=== PATIENT | male | born 1965 | race Caucasian/White ===

== ENCOUNTER → 2023-10-19 | Outpatient (CLI) | payer SELFPAY, OTHER ==
--- NOTE | 2023-10-19 10:30 | PET_ITS ---
EXAMINATION: FDG PET-CT INDICATIONS: A 58-year-old male with history of primary urinary bladder carcinoma presenting for restaging examination. COMPARISON EXAMINATION: None available TECHNIQUE: Following the intravenous administration of 13.34 mCi of F-18 deoxyglucose via the left antecubital fossa, multiplanar image acquisitions of the neck, chest, abdomen and pelvis to level of mid thigh, obtained at one hour post radiopharmaceutical administration contemporaneously interpreted with the current CT of the neck, chest, abdomen and pelvis, to level of mid thigh, dated 10/19/23 via coregistration reveals: BLOOD GLUCOSE LEVEL:?? 73 mg/dl?HEIGHT:?68 inches?WEIGHT: 187 lbs. FINDINGS: Head/Neck: There is no evidence of abnormal increased glucose metabolism in the pharyngeal mucosal space, parapharyngeal space, bilateral-lateral and anterior neck, hypopharynx and distribution of the laryngeal structures. The visualized portion of the cerebral cortical-subcortical structures demonstrate symmetric and preserved glucose metabolism. CHEST: There is no quantitative scintigraphic evidence of abnormal increased glucose metabolism within the context of the bilateral hemithorax pulmonary parenchyma, right and left hemithorax pleural interface, mediastinal structures and right-left thoracic perihilum. Pertinent chest CT findings are as follows. There is atherosclerotic calcification defined in the thoracic aorta without evidence of dilatation-aneurysm formation. Coronary arterial calcification is observed. There are no parenchymal densities-nodules defined in the right and left hemithorax with quantitatively significant increased FDG uptake. Abdomen/Pelvis: Normal physiologic distribution of the radiopharmaceutical is apparent in the hepatic and splenic parenchyma, both renal units, bladder and visualized intestinal tract. Diffuse radiopharmaceutical concentration is noted in all four quadrants of the abdomen and pelvis. Accentuated uptake is noted in the parenchyma of a normal-sized spleen. The abdomen and pelvis CT findings are as follows. There is atherosclerotic calcification defined in the abdominal aorta without evidence of dilatation-aneurysm formation. Abdominal-pelvic arterial calcification is observed. There is questionable evidence of cholelithiasis. Colonic diverticulosis is demonstrated without evidence of diverticulitis. Thickening of the urinary bladder wall to the left of the midline demonstrates no evidence of quantitatively significant increased FDG uptake. Right and left inguinal soft tissue densities are ametabolic. Skeletal: There is homogenous enhanced glucose concentration evidenced in the visualized appendicular and axial skeletal structures. PET/PET/CT Tumor Base -Thigh Subs IMPRESSION: 1. NEGATIVE EXAMINATION. There is no definitive quantitative scintigraphic evidence of recurrent/viable neoplasm. 2. Homogeneous increased radiopharmaceutical concentration noted in the visualized appendicular and axial skeletal structures is commensurate with the hematopoietic response to chemotherapeutic intervention. (Sugawa et al, Journal of Clinical Oncology 16:173, 1998). 3. 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 Electronic Signature Tru Rahman D.O. Accurate Quantification of SUVs for this report are calculated using the exclusive [employer], (U.S. Patent No. 10, [id number] 983 B2 [phone] [place] patent [phone] ). Standardization and correction of the FDG SUV metric exclusively available with [employer] intellectual property, allow for vendor non-specific objective quantitative sequential FDG PET-CT comparison and otherwise unobtainable optimization of the sensitivity and specificity of the examination. [email or web address] Electronically Signed: Tru Rahman DO at 8:12 EDT ,
== END | disposition home or self-care (01) ==
LOC: ONC 10:04
PROVIDERS: PCP Nurse Practitioner Family
DX: C67.2 Malignant neoplasm of lateral wall of bladder (principal); D61.810 Antineoplastic chemotherapy induced pancytopenia
CPT/HCPCS: 78815; A9552

== ENCOUNTER → 2023-12-10 | Outpatient (CLI) | payer SELFPAY, OTHER ==
--- NOTE | 2023-12-10 14:28 | CT_ITS ---
STUDY: CT ABDOMEN AND PELVIS WITH CONTRAST REASON FOR EXAM: Male, 58 years old. Evaluate bladder mass -- compare to prior RADIATION DOSAGE (If Supplied By Facility): CTDIvol = ( 13.04 ) mGy, DLP = ( 932.50 ) mGycm TECHNIQUE: Transaxial images were obtained from the dome of the diaphragm to the symphysis pubis with oral contrast. Oral and amp; IV Readi-CAT and amp; 100mL Isovue-370 was administered. Sagittal and coronal images were reconstructed. Individualized dose optimization techniques were used for this CT. COMPARISON: None. FINDINGS: Mild degree of increased linear markings at the left lung base suggestive of atelectasis. Coronary artery calcification. Normal liver. The patient is status post cholecystectomy. Normal spleen. Normal pancreas. Normal bilateral adrenal glands. Normal right kidney. Normal left kidney. Normal visualized stomach. Normal small intestine. Normal colon. The appendix is visualized and appears normal. There is scattered atherosclerotic calcification of the abdominal aorta, without a demonstrated aneurysm. Normal inferior vena cava. Normal retroperitoneum. There is a crescentic shaped soft tissue density along the anterior and left lateral wall of the urinary bladder. There is also evidence of thickening along the right lateral wall of the urinary bladder. Process should be ruled out. Normal abdominal wall. Normal osseous structures. CT/Abdomen/Pelvis WITH Contrast IMPRESSION: Bladder wall thickening as described. A neoplastic process should be ruled out. There has been essentially no change since prior study dated June 23, 1999 Electronically Signed: Tristen Aviles MD at 15:09 EDT ,
[2023-12-10 14:56] LABS: CREATININE FINGERSTICK < 1.0 mg/dL (0.70-1.30); EGFR FINGERSTICK > 60.0000 mL/min (>60)
== END | disposition home or self-care (01) ==
LOC: CT 14:28
PROVIDERS: PCP Nurse Practitioner Family; Referring Provider Student in an Organized Health Care Education/Training Program; Visit Provider Student in an Organized Health Care Education/Training Program
DX: C67.9 Malignant neoplasm of bladder, unspecified (principal)
CPT/HCPCS: 74177; Q9967

== ENCOUNTER → 2024-03-21 | Outpatient (CLI) | payer OTHER, SELFPAY ==
--- NOTE | 2024-03-21 09:00 | PET_ITS ---
EXAMINATION: FDG-PET/CT ? INDICATIONS: 58-year-old male with a history of primary urinary bladder carcinoma, presenting for restaging examination. ? COMPARISON EXAMINATION: FDG-PET CT study dated 10/19/2023. ? TECHNIQUE: Following the intravenous administration of 11.61 mCi of F-18 deoxyglucose via the left antecubital fossa, multiplanar image acquisitions of the head, neck, chest, abdomen and pelvis to the level of the midthigh, obtained at one-hour post radiopharmaceutical administration contemporaneously interpreted with the current CT of the chest, abdomen and pelvis dated 03/21/2024 and prior FDG-PET CT study dated 10/19/2023 via coregistration reveal: ? SERUM GLUCOSE LEVEL:? 67 mg/dL? HEIGHT:?? 68 inches WEIGHT:?? 173 pounds ? FINDINGS: ? HEAD/NECK:? There is no evidence of abnormal increased glucose metabolism in the pharyngeal mucosal space, parapharyngeal space, oropharynx, bilateral-lateral and anterior neck, hypopharynx and distribution of the larynx. ? The visualized portion of the cerebral cortical-subcortical structures demonstrate symmetric and preserved glucose metabolism. ? CHEST:? There is no quantitative scintigraphic evidence of abnormal increased glucose metabolism within the context of the bilateral hemithorax pulmonary parenchyma, right and left hemithorax at the pleural interface, mediastinal structures, and left-right thoracic perihilum. ? CT of the chest demonstrates the following anatomic characteristics: On review of CT of the chest, there is no definitive interval change compared to the study dated 10/19/2023. ? ABDOMEN/PELVIS:? Normal physiologic distribution of the radiopharmaceutical is identified in the hepatic and splenic parenchyma, both renal units, urinary bladder, and visualized intestinal tract. ? CT of the abdomen and pelvis is remarkable for the following: On review of CT of the abdomen/pelvis, there is no definitive interval change compared to the study dated 10/19/2023. ? SKELETAL:? There is no evidence of quantitatively significant enhanced glucose metabolism on meticulous inspection of the appendicular and axial skeletal structures. ? Degenerative changes defined in the thoracic and lumbar spine demonstrate no evidence of increased glucose metabolism. There are no sclerotic, mixed sclerotic-lytic, or primarily lytic changes defined in the axial skeletal structures with evidence of increased FDG uptake. ? PET/PET/CT Tumor Base -Thigh Subs IMPRESSION: 1. NEGATIVE EXAMINATION. There is no definitive quantitative scintigraphic evidence of recurrent-viable neoplasm. 2. Overall, compared to the prior FDG-PET CT study dated 10/19/2023, there is current and continued absence of defined viable neoplastic disease. Electronic Signature Tru Rahman D.O. Accurate Quantification of SUVs for this report are calculated using the exclusive [employer]. (U.S. Patent No. 10, 674, 983 B2 [phone] [place] patent [phone]). Standardization and correction of the FDG SUV metric via [employer] technology allow for vendor non-specific objective quantitative examination comparison and optimization of the sensitivity and specificity of the FDG PET-CT examination. [email or web address] Electronically Signed: Tru Rahman DO at 23:05 EST ,
== END | disposition home or self-care (01) ==
LOC: ONC 09:19
PROVIDERS: PCP Nurse Practitioner Family; Referring Provider Internal Medicine Hematology & Oncology; Visit Provider Internal Medicine Hematology & Oncology
DX: C67.2 Malignant neoplasm of lateral wall of bladder (principal); D61.810 Antineoplastic chemotherapy induced pancytopenia; D63.0 Anemia in neoplastic disease
CPT/HCPCS: 78815; A9552

== ENCOUNTER → 2024-07-18 | Outpatient (CLI) | payer SELFPAY, OTHER ==
--- NOTE | 2024-07-18 07:49 | CT_ITS ---
PROCEDURE: ABDOMEN/PELVIS WITH CONTRAST 07/18/2024 REASON FOR EXAM: 58-year-old male, FOLLOW UP TREATED BLADDER CANCER, prior resection with chemo/radiation. TECHNIQUE: Abdomen and pelvis CT with intravenous contrast. Coronal and Sagittal reconstruction series were provided. PATIENT PREPARATION: Per protocol ORAL CONTRAST TYPE: None. CONTRAST: Isovue 370 VOLUME: 100 mL, oral contrast material also administered. One or more dose reduction techniques were used (e.g., Automated exposure control, adjustment of the mA and/or kV according to patient size, use of iterative reconstruction technique. RADIATION DOSE SUMMARY: CTDlvol: 31 mGy DLP: 1100 mGycm COMPARISON: None. FINDINGS: Lung bases: Bibasilar atelectasis and mild elevation of the left hemidiaphragm. Coronary artery calcifications. The heart is normal in size. Liver: The liver is normal in size without focal hepatic mass. The major portal veins are patent. No biliary ductal dilation. Gallbladder: Prior cholecystectomy. Spleen: Normal in size. Pancreas: Unremarkable. Adrenals: Unremarkable. Kidneys: Mild symmetric perinephric stranding. No hydronephrosis or nephrolithiasis. Bladder: Mildly distended with diffuse, asymmetric bladder wall thickening. Reproductive Organs: Mild prostatomegaly with calcific plaque of the seminal vesicles and vas deferens, compatible with reported diabetes. Bowel: Contrast opacifies the stomach, small and large bowel loops. The bowel loops are normal in caliber. Mild pancolonic diverticulosis. No ascites or pneumoperitoneum. Normal appendix. Lymph nodes: Markedly enlarged, partially necrotic right retrocaval lymph node, measuring 2.2 cm short axis diameter (series 2, image 61). Vasculature: Mild mixed atherosclerotic plaque of the aortoiliac vessels. Bones: Degenerative changes of the spine. No aggressive osseous lesions. CT/Abdomen/Pelvis WITH Contrast IMPRESSION: 1. Enlarged partially necrotic right retrocaval lymph node, compatible with nod al metastatic disease. HOWEVER, findings may represent treated and shrinking lymph node, partial tumor response or new site of disease. Correlation with prior imaging, surgical operative notes, as well as prior radiation treatment and treatment fi eld is essential for accurate diagnosis. 2. Diffuse, asymmetric bladder wall thickening, which is again incompletely [place] luated without patient history and prior imaging. Reading Location: [facility]
[2024-07-18 08:18] LABS: CREATININE FINGERSTICK < 1.0 mg/dL (0.70-1.30); EGFR FINGERSTICK > 60.0000 mL/min (>60)
== END | disposition home or self-care (01) ==
LOC: CT 07:48
PROVIDERS: PCP Nurse Practitioner Family; Referring Provider Student in an Organized Health Care Education/Training Program; Visit Provider Student in an Organized Health Care Education/Training Program
DX: C67.2 Malignant neoplasm of lateral wall of bladder (principal)
CPT/HCPCS: 74177; Q9967